=== PATIENT | male | born 1945 | race Caucasian/White ===

== ENCOUNTER 2022-01-02 15:28 | Inpatient (IN) | payer BC, MEDICARE ==
[2022-01-02] MEDS ORDERED: Acetaminophen 325 MG TAB PO PRN ×2 (16:49→16:51)
[2022-01-02] MEDS ORDERED: Communication Order-Pharmacy FS PRN (16:49)
[2022-01-02] MEDS ORDERED: HYDROcodone/Acetaminophen 5/325 mg Tablet PO PRN (16:49)
[2022-01-02] MEDS ORDERED: niCARdipine 25 MG in Sodium Chloride 0.9% 250 ML 250 ML IVPB PRN (16:49)
[2022-01-02] MEDS ORDERED: Ondansetron PF 4 MG/2 ML Vial IVP PRN (16:49)
[2022-01-02] MEDS ORDERED: Labetalol HCl 100 MG/20 ML VIAL SLOW IVP PRN (16:49)
[2022-01-02] MEDS ORDERED: hydrALAZINE 20 MG/ML VIAL SLOW IVP PRN (16:49)
[2022-01-02] MEDS ORDERED: Acetaminophen 650 MG Suppository PR PRN (16:51)
[2022-01-02] MEDS ORDERED: Dextrose 5% in Water 1,000 ML IV PRN (17:58)
[2022-01-02] MEDS ORDERED: Dextrose 50% Abboject 50 ML SYRINGE SLOW IVP PRN (17:58)
[2022-01-02] MEDS ORDERED: Lorazepam (BATCHED) 2 MG/ML SYR SLOW IVP PRN (18:01)
[2022-01-02 18:17] LABS: SARS-CoV-2 NAA Rapid Test Not Detected (NotDetected)
[2022-01-02] MEDS ORDERED: Famotidine/PF 20 mg/2ml Vial ONE (21:59)
[2022-01-02] MEDS: Insulin Glargine 30 UNITS/0.3 ML VIAL SC SCH (22:09)
[2022-01-02] MEDS: Famotidine/PF 20 mg/2ml Vial SLOW IVP SCH (22:18)
[2022-01-02] MEDS: Atorvastatin Calcium 40 MG TAB PO SCH (22:18)
[2022-01-03 03:54] LABS: #Eosinphils 0.1 thou/uL (0.0-0.7); #Lymphocytes 1.5 thou/uL (1.20-3.40); #Monocytes 0.6 thou/uL (0.11-0.59); %Basophils 0.3 % (0.0-1.0); %Eosinophils 1.9 % (0.0-10.0); %Monocytes 8.6 % (0.0-10.0); %Neutrophils 68.3 % (42.0-75.0); Mean Corpuscular HGB CONC 33.8 g/dL (32.0-36.0); Mean Corpuscular Hemoglobin 33.2 pg (27.0-31.0); Mean Corpuscular Volume 98.4 fL (78.0-98.0); Mean Platelet Volume 7.4 fL (7.4-10.4); Platelet Count 188 thou/uL (130-400); RBC Distribution Width 12.4 % (11.5-14.5); Red Blood Cell (RBC) Count 4.51 mill/uL (4.70-6.10); White Blood Cell (WBC) Count 7.3 thou/uL (4.8-10.8)
[2022-01-03 04:14] LABS: Anion Gap 12 mmol/L (10-20); BUN (Urea Nitrogen) 19 mg/dL (8.4-25.7); Calc. Creatinine Clearance 0 mL/min (70-130); Calcium 9.3 mg/dL (7.8-10.44); Carbon Dioxide 28 mmol/L (23-31); Cardiac Risk 4.1 (Less than 4.5); Chloride 102 mmol/L (98-107); Cholesterol 135 mg/dl (< 200 Desired); Estimated GFR 90; Glucose 204 mg/dL (83-110); HDL Cholesterol 33 mg/dL (>60 Neg Risk); LDL Cholesterol, Calculated 71 mg/dL; Sodium 138 mmol/L (136-145); Triglycerides 154 mg/dL (Less than 150)
[2022-01-03 04:19] LABS: Hemoglobin A1c 7.8 % (4.0-6.0)
[2022-01-03 08:14] VITALS: BMI 31.7
[2022-01-03] MEDS: Folic Acid 1 MG TAB PO SCH (09:43)
[2022-01-03] MEDS: Thiamine 100 MG TAB PO SCH (09:43)
[2022-01-03] MEDS: Multivit, Therapeutic 1 TAB PO SCH (09:43)
[2022-01-03] MEDS ORDERED: Amlodipine 5 MG TAB PO SCH (09:45)
[2022-01-03] MEDS ORDERED: Famotidine/PF 20 mg/2ml Vial ONE (10:34)
[2022-01-03] MEDS ORDERED: Amlodipine 5 MG TAB ONE (10:34)
[2022-01-03] MEDS: Insulin Glargine 30 UNITS/0.3 ML VIAL SC SCH ×2 (10:46→22:09)
[2022-01-03] MEDS: Famotidine/PF 20 mg/2ml Vial SLOW IVP SCH ×2 (10:46→22:10)
[2022-01-03] MEDS: Atorvastatin Calcium 40 MG TAB PO SCH (20:18)
[2022-01-04] MEDS: Insulin Glargine 30 UNITS/0.3 ML VIAL SC SCH ×2 (08:42→21:01)
[2022-01-04] MEDS: Amlodipine 5 MG TAB PO SCH (08:45)
[2022-01-04] MEDS: Folic Acid 1 MG TAB PO SCH (08:46)
[2022-01-04] MEDS: Thiamine 100 MG TAB PO SCH (08:47)
[2022-01-04] MEDS: Famotidine/PF 20 mg/2ml Vial SLOW IVP SCH ×2 (08:48→21:01)
[2022-01-04] MEDS: Multivit, Therapeutic 1 TAB PO SCH (12:47)
[2022-01-04] MEDS ORDERED: Aspirin 325 mg Enteric Coated Tablet PO SCH (14:15)
[2022-01-04] MEDS: HumaLOG 300 UNITS/3 ML VIAL SC PRN (17:38)
[2022-01-04] MEDS: Atorvastatin Calcium 40 MG TAB PO SCH (21:01)
[2022-01-05] MEDS: Thiamine 100 MG TAB PO SCH (09:12)
[2022-01-05] MEDS: Folic Acid 1 MG TAB PO SCH (09:12)
[2022-01-05] MEDS: Famotidine/PF 20 mg/2ml Vial SLOW IVP SCH ×2 (09:12→21:15)
[2022-01-05] MEDS: Amlodipine 5 MG TAB PO SCH (09:12)
[2022-01-05] MEDS: Aspirin 81 mg Enteric Coated Tablet PO SCH (09:12)
[2022-01-05] MEDS: Insulin Glargine 30 UNITS/0.3 ML VIAL SC SCH ×2 (09:13→21:15)
[2022-01-05] MEDS: Enoxaparin Sodium 40 MG/0.4 ML SYRINGE SC SCH (09:13)
[2022-01-05] MEDS: Multivit, Therapeutic 1 TAB PO SCH (09:13)
[2022-01-05] MEDS: HumaLOG 300 UNITS/3 ML VIAL SC PRN ×2 (12:50→17:19)
[2022-01-05] MEDS: Atorvastatin Calcium 40 MG TAB PO SCH (21:15)
[2022-01-06] MEDS: Thiamine 100 MG TAB PO SCH ×2 (08:49→08:55)
[2022-01-06] MEDS: Folic Acid 1 MG TAB PO SCH (08:49)
[2022-01-06] MEDS: Famotidine/PF 20 mg/2ml Vial SLOW IVP SCH ×2 (08:49→21:28)
[2022-01-06] MEDS: Aspirin 81 mg Enteric Coated Tablet PO SCH (08:49)
[2022-01-06] MEDS: Multivit, Therapeutic 1 TAB PO SCH (08:49)
[2022-01-06] MEDS: Insulin Glargine 30 UNITS/0.3 ML VIAL SC SCH ×2 (08:49→21:28)
[2022-01-06] MEDS: Amlodipine 5 MG TAB PO SCH (08:49)
[2022-01-06] MEDS: Enoxaparin Sodium 40 MG/0.4 ML SYRINGE SC SCH (08:50)
[2022-01-06] MEDS: Atorvastatin Calcium 40 MG TAB PO SCH (21:28)
[2022-01-07] MEDS: Amlodipine 5 MG TAB PO SCH (08:39)
[2022-01-07] MEDS: Insulin Glargine 30 UNITS/0.3 ML VIAL SC SCH ×2 (08:39→21:55)
[2022-01-07] MEDS: Folic Acid 1 MG TAB PO SCH (08:39)
[2022-01-07] MEDS: Famotidine/PF 20 mg/2ml Vial SLOW IVP SCH ×2 (08:39→21:55)
[2022-01-07] MEDS: Aspirin 81 mg Enteric Coated Tablet PO SCH (08:40)
[2022-01-07] MEDS: Thiamine 100 MG TAB PO SCH (08:40)
[2022-01-07] MEDS: Multivit, Therapeutic 1 TAB PO SCH (08:40)
[2022-01-07] MEDS: Enoxaparin Sodium 40 MG/0.4 ML SYRINGE SC SCH (08:40)
[2022-01-07] MEDS: HumaLOG 300 UNITS/3 ML VIAL SC PRN ×2 (13:02→17:01)
[2022-01-07] MEDS: Atorvastatin Calcium 40 MG TAB PO SCH (21:56)
[2022-01-08 05:55] LABS: #Eosinphils 0.1 thou/uL (0.0-0.7); #Lymphocytes 1.1 thou/uL (1.20-3.40); #Monocytes 0.7 thou/uL (0.11-0.59); #Neutrophils 7.1 thou/uL (1.40-6.50); %Basophils 0.2 % (0.0-1.0); %Eosinophils 0.8 % (0.0-10.0); %Lymphocytes 12.7 % (21.0-51.0); %Monocytes 7.4 % (0.0-10.0); %Neutrophils 78.9 % (42.0-75.0); Hemoglobin 14.6 g/dL (14.0-18.0); Mean Corpuscular HGB CONC 33.8 g/dL (32.0-36.0); Mean Corpuscular Hemoglobin 33.5 pg (27.0-31.0); Mean Corpuscular Volume 99.1 fL (78.0-98.0); Mean Platelet Volume 7.6 fL (7.4-10.4); Platelet Count 190 thou/uL (130-400); RBC Distribution Width 12.3 % (11.5-14.5); Red Blood Cell (RBC) Count 4.36 mill/uL (4.70-6.10)
[2022-01-08 06:11] LABS: Anion Gap 12 mmol/L (10-20); BUN (Urea Nitrogen) 16 mg/dL (8.4-25.7); Calc. Creatinine Clearance 110 mL/min (70-130); Calcium 8.8 mg/dL (7.8-10.44); Carbon Dioxide 29 mmol/L (23-31); Chloride 103 mmol/L (98-107); Estimated GFR 93; Potassium 3.3 mmol/L (3.5-5.1); Sodium 141 mmol/L (136-145)
[2022-01-08 06:18] LABS: Glucose 42 mg/dL (83-110)
[2022-01-08] MEDS: Thiamine 100 MG TAB PO SCH (08:30)
[2022-01-08] MEDS: Multivit, Therapeutic 1 TAB PO SCH (08:30)
[2022-01-08] MEDS: Enoxaparin Sodium 40 MG/0.4 ML SYRINGE SC SCH (08:30)
[2022-01-08] MEDS: Folic Acid 1 MG TAB PO SCH (08:30)
[2022-01-08] MEDS: Amlodipine 5 MG TAB PO SCH (08:30)
[2022-01-08] MEDS: Famotidine/PF 20 mg/2ml Vial SLOW IVP SCH (08:31)
[2022-01-08] MEDS: Aspirin 81 mg Enteric Coated Tablet PO SCH (08:31)
[2022-01-08] MEDS ORDERED: Hydrochlorothiazide 25 MG TAB PO SCH (09:00)
[2022-01-08] MEDS: HumaLOG 300 UNITS/3 ML VIAL SC PRN (12:10)
[2022-01-08 15:58] VITALS: BP 134/84; TEMP 97.4
== END 2022-01-08 16:37 | disposition home or self-care (01) | DRG 65 ==
LOC: ERS 15:28 → ERHOLD 17:05 → NEURO 01-03 18:15
PROVIDERS: ADMIT Internal Medicine; ATTEND Internal Medicine
DX: I63.9 Cerebral infarction, unspecified (principal); Z92.82 Status post administration of tPA (rtPA) in a different facility within the last 24 hours prior to admission to current facility; Z20.822 Contact with and (suspected) exposure to COVID-19; E11.9 Type 2 diabetes mellitus without complications; I10 Essential (primary) hypertension; E78.5 Hyperlipidemia, unspecified; R29.706 NIHSS score 6; R47.81 Slurred speech; R29.810 Facial weakness; R47.1 Dysarthria and anarthria; Z96.653 Presence of artificial knee joint, bilateral; Z79.899 Other long term (current) drug therapy; Z79.84 Long term (current) use of oral hypoglycemic drugs; Z79.4 Long term (current) use of insulin
CPT/HCPCS: 36415; 36416; 70450; 70551; 74230; 80048; 80061; 83036; 85025; 93306; 99285; J1650; J1815; J7070; S0028; U0002